=== PATIENT | female | born 1965 | race Two or more races ===

== ENCOUNTER 2016-12-10 11:19 | Emergency (ER) | payer OTHER ==
[~2016-12-10] VITALS: Ht 165.1 cm; Wt 91.6 kg
--- NOTE | 2016-12-10 11:36 | NUR ---
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 NAD NOTED. RESP EVEN UNLABORED. SKIN WARM NONDIAPHORETIC. AMBULATORY WITH STEADY GAIT. NO NEURO DEFICITS NOTED. IN ER BED 09.
--- NOTE | 2016-12-10 12:35 | NUR ---
Patient discharged to home in stable condition. Written and verbal after care instructions given. Patient verbalizes understanding of instruction. AMBULATORY WITH STEADY GAIT.
[2016-12-10 12:41] VITALS: BP 122/79
== END 2016-12-10 12:42 | disposition home or self-care (01) ==
LOC: ER 11:23
DX: S13.9XXA Sprain of joints and ligaments of unspecified parts of neck, initial encounter (principal); X58.XXXA Exposure to other specified factors, initial encounter; Y93.89 Activity, other specified; Y92.89 Other specified places as the place of occurrence of the external cause; Y99.8 Other external cause status; J45.909 Unspecified asthma, uncomplicated; E11.9 Type 2 diabetes mellitus without complications
CPT/HCPCS: 71010; 72050; 93005; 99284; A4606; Z7610

== ENCOUNTER 2017-01-08 05:17 | Emergency (ER) | payer OTHER ==
[~2017-01-08] VITALS: Ht 165.1 cm; Wt 90.7 kg
--- NOTE | 2017-01-08 05:30 | NUR ---
51 YO FEMALE BB SELF. PT IS ALERT X 3, C/O LEFT UPPER/ MID PAIN SINCE SATURDAY. PT STATES SHES ALSO NAUSOUS, NO VOMIT, GRADUAL ONSET, TONIGHT IS THE WORSE ITS BEEN. THE PAIN WOKE UP PT TODAY, CAME TO [facility] ED FOR EVAL. SKIN WARM AND DRY, RR EVEN AND UNLABORED. PT GOWNED, PLACED ON LOT ASSOCIATE. WILL CONITNUE TO MONITOR
--- NOTE | 2017-01-08 05:34 | NUR ---
Note undone in EDM - 01/08/17 at 0538 by SHARLENE PT JORDYNSELRudy, AMBULATORY TO ER BED 6 C/O LEFT SIDED ABD PAIN SINCE SATURDAY WITH NAUSEA. PT AOX4 RR EVEN AND UNLABORED. NO SOB NOTED. NAD NOTED. NO NVD AT THIS TIME. PT NOT DIAPHORETIC. PT GOWNED AND PLACED ON MONITOR. URINE COLLECTED.
[2017-01-08] MEDS ORDERED: IV NS 0.9% 500 ML IV ONE (05:36)
[2017-01-08] MEDS ORDERED: ONDANSETRON HCL/PF 4 MG/2 ML VIAL ONE (05:36)
--- NOTE | 2017-01-08 05:38 | NUR ---
PE[facility]A QUEEN DO AT BED SIDE FOR EVAL
[2017-01-08 05:55] LABS: BASOPHILS % (AUTO) 0.3 % (0.0-2.0); EOSINOPHILS # (AUTO) 0.1 /CMM (0.0-0.7); HEMATOCRIT 43 % (33-45); HEMOGLOBIN 14.5 g/dL (11.5-14.8); LYMPHOCYTES % (AUTO) 11.6 % (20.0-44.0); MEAN CORPUSCULAR HEMOGLOBIN 29 PG (26.0-33.0); MEAN CORPUSCULAR HGB CONC 33 g/dl (31.0-36.0); MEAN CORPUSCULAR VOLUME 87 fL (82-100); MONOCYTES # (AUTO) 0.4 /CMM (0.1-1.30); MONOCYTES % (AUTO) 5.2 % (2.0-12.0); NEUTROPHILS # (AUTO) 6.9 /CMM (1.8-8.9); NEUTROPHILS % (AUTO) 81.9 % (43.0-81.0); PLATELET COUNT (AUTO) 238 /CMM (150-450); RDW COEFFICIENT OF VARIATION 12.7 (11.5-15.0); RED BLOOD CELL COUNT(AUTO) 4.97 MIL/uL (4.0-5.2); WHITE BLOOD COUNT (AUTO) 8.4 K/uL (4.3-11.0)
[2017-01-08] MEDS ORDERED: ONDANSETRON HCL/PF 4 MG/2 ML VIAL IVP ONE (06:00)
[2017-01-08] MEDS ORDERED: IV NS 0.9% 500 ML BAG IV ONE (06:00)
--- NOTE | 2017-01-08 06:04 | NUR ---
PT TO CT.
[2017-01-08 06:07] LABS: CALCIUM, SERUM 8.3 mg/dL (8.5-10.1); CREATININE 0.7 mg/dL (0.6-1.3); POTASSIUM 3.9 mmol/L (3.5-5.1)
--- NOTE | 2017-01-08 06:10 | NUR ---
PT RETURNED FROM CT.
[2017-01-08 06:11] LABS: INR 0.97 (0.87-1.13); PROTHROMBIN TIME 10.4 SECS (9.5-12.7)
[2017-01-08 06:12] LABS: ALBUMIN 3.7 g/dL (3.4-5.0); BILIRUBIN,DIRECT 0.1 mg/dL (0.0-0.2); BILIRUBIN,TOTAL 0.3 mg/dL (0.2-1.0); TOTAL PROTEIN, SERUM 6.9 g/dL (6.4-8.2)
[2017-01-08 06:14] LABS: TROPONIN I 0.019 ng/mL (0.00-0.056)
[2017-01-08] MEDS ORDERED: KETOROLAC TROMETHAMINE INJ 30 MG/ML VIAL ONE (07:27)
[2017-01-08] MEDS ORDERED: KETOROLAC TROMETHAMINE INJ 30 MG/ML VIAL IV ONE (07:30)
--- NOTE | 2017-01-08 08:44 | NUR ---
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
--- NOTE | 2017-01-08 08:46 | NUR ---
VIGNESH, US TECH AT BEDSIDE
--- NOTE | 2017-01-08 09:10 | NUR ---
PAGED DR CASTRO AND LEFT A MESSAGE TO THE TOOL CARRIER.
--- NOTE | 2017-01-08 09:30 | NUR ---
call back from dr wiseman,spoke with dr huggins
--- NOTE | 2017-01-08 09:55 | NUR ---
IV removed. Catheter intact and site benign. Pressure and 4x4 applied to site. No bleeding noted.Patient discharged to home in stable condition. Written and verbal after care instructions given. Patient verbalizes understanding of instruction.
[2017-01-08 09:58] VITALS: BP 125/75
[2017-01-08] MEDS ORDERED: ONDANSETRON HCL/PF 4 MG/2 ML VIAL IV ONE (10:00)
== END 2017-01-08 09:59 | disposition home or self-care (01) ==
LOC: ER 05:17
DX: R10.9 Unspecified abdominal pain (principal); R11.11 Vomiting without nausea; J45.909 Unspecified asthma, uncomplicated; E11.9 Type 2 diabetes mellitus without complications; K85.90 Acute pancreatitis without necrosis or infection, unspecified
CPT/HCPCS: 36415; 74176; 76705; 80048; 80076; 83690; 84484; 85025; 85730; 93005; 96374; 96375; 99285; A4606; J1885; J2405; J7040; Z7610

== ENCOUNTER 2017-11-18 10:58 | Emergency (ER) | payer OTHER ==
[~2017-11-18] VITALS: Ht 165.1 cm; Wt 94.3 kg
[2017-11-18 11:03] VITALS: BP 158/81
== END 2017-11-18 11:26 | disposition home or self-care (01) ==
LOC: ER 11:00
DX: S29.012A Strain of muscle and tendon of back wall of thorax, initial encounter (principal); E11.9 Type 2 diabetes mellitus without complications; Z90.710 Acquired absence of both cervix and uterus; Z90.49 Acquired absence of other specified parts of digestive tract; X58.XXXA Exposure to other specified factors, initial encounter; Y93.89 Activity, other specified; Y92.89 Other specified places as the place of occurrence of the external cause; Y99.8 Other external cause status
CPT/HCPCS: A4606; Z7610